=== PATIENT | male | born 1940 | race Caucasian/White ===

== ENCOUNTER 2024-05-07 12:17 | Emergency (ER) | payer MEDICARE ==
[~2024-05-07] VITALS: Ht 180.3 cm; Wt 89.8 kg
[~2024-05-07 12:17] MED LIST: ASPIRIN81 MG PO; CRESTOR10 MG PO; ELIQUIS2.5 MG PO; FLECAINIDE ACE100 MG PO; HYDRALAZINE HCL50 MG PO; LOSARTAN POTAS100 MG PO; METOPROLOL TAR100 MG PO; PANTOPRAZOLE SO40 MG PO
[2024-05-07 12:25] VITALS: PULSE 79; RESP 16; TEMP 97.6; O2SAT 97
== END 2024-05-07 13:17 | disposition home or self-care (01) ==
LOC: FSED 12:33
DX: M50.30 Other cervical disc degeneration, unspecified cervical region (principal); I10 Essential (primary) hypertension
CPT/HCPCS: 72040; 99283